=== PATIENT | female | born 1995 | race Caucasian/White ===

== ENCOUNTER 2016-04-08 15:58 | Emergency (ER) | payer OTHER ==
[~2016-04-08] VITALS: Ht 157.5 cm; Wt 69.0 kg
--- NOTE | 2016-04-08 15:57 | EMERGENCY ROOM VISIT NOTE ---
History Report prepared by Yaritza: Sandy Cintron Under the Supervision of: Dr. Arvind Wyatt M.D. First contact with patient: 15:54 Chief Complaint: ALCOHOL OVERDOSE Stated Complaint: ETOH History of Present Illness The patient is a 20 year old female who presents to the Emergency Room with complaints of an episode of alcohol intoxication beginning just CRIMINAL JUDGE. The patient states that she was drinking today and was brought in here because she was vomiting. EMS reports that the patient drank 5 beers and had 1 drink before vomiting 2 times in the lobby and the hallway of a building. The patient notes that she has a history of ulcerative colitis. She denies any drug use, fall, and trauma. Source of History: patient Onset: just CRIMINAL JUDGE Position: other (global) Quality: other (intoxicated) Timing: other (episode) Note: She denies any drug use, fall, and trauma. Review of Systems See HPI for pertinent positives & negatives. A total of 10 systems reviewed and were otherwise negative. Past Medical & Surgical Medical Problems: (1) Ulcerative colitis Old medical records were reviewed. Nurse's notes were reviewed and I agree with. Family History No pertinent family history stated. Social History Alcohol Use: occasionally Marital Status: single Housing Status: lives with roommate Occupation Status: student Current/Historical Medications Scheduled Azathioprine (Imuran), 50 MG PO DAILY Sulfasalazine (Azulfidine), Unknown Dose PO BID Allergies Coded Allergies: No Known Allergies (Unverified , 04/08/16) Physical Exam Vital Signs Date Time Temp Pulse Resp B/P Pulse Ox O2 Delivery O2 Flow Rate FiO2 04/08/16 19:49 120 20 158/92 100 04/08/16 19:06 105 16 133/87 100 04/08/16 17:14 120/46 04/08/16 17:13 92 15 100 04/08/16 17:08 79 15 100 04/08/16 17:03 74 15 100 04/08/16 16:58 74 17 100 04/08/16 16:53 73 16 100 04/08/16 16:48 67 15 100 04/08/16 16:43 72 16 100 04/08/16 16:38 72 16 100 04/08/16 16:33 65 16 100 04/08/16 16:31 82 04/08/16 16:28 83 16 100 04/08/16 16:23 73 15 100 04/08/16 16:18 68 17 100 04/08/16 16:13 91 16 92 04/08/16 16:08 91 17 100 04/08/16 16:03 122/77 04/08/16 16:00 36.4 96 18 122/77 98 Room Air Physical Exam General: Moderately intoxicated young female, slurred speech, answers questions appropriately. HEENT: Normal cephalic atraumatic. Pupils are equal round and reactive to light. Extraocular movements are intact. Oropharynx is pink with moist mucous membranes. No swelling of the mouth lips or tongue. Neck: Supple with a midline trachea. No meningeal signs or stiffness, no JVD or bruits. No Stridor. Chest: Clear to auscultation bilaterally. No wheezes or rhonchi. No increased work of breathing. Heart: regular rate and rhythm. Abdomen: Soft nontender, nondistended without rebound guarding or rigidity. Extremities: No cyanosis clubbing or edema. No calf tenderness or assymetry Spine/Back. Non tender to palpation. No CVA tenderness Skin: Good turgor without rashes. Neurologic exam: Cranial nerves two through 12 are intact. Motor and sensation are intact and symmetrical throughout. Medical Decision & Procedures Laboratory Results Test 04/08/16 16:07 Ethyl Alcohol mg/dL 200.0 mg/dl (0-3) Laboratory studies as stated above per my review. ED Course 1555: Past medical records reviewed. The patient was evaluated in room B3B, and a complete history and physical examination were performed. 1807: I reevaluated the patient. She is waking up. 1928: I reevaluated the patient. She is trying to find a ride home. 1948: The patient's sober friend just arrived. 1954: Upon reevaluation, the patient is hemodynamically stable. I discussed the results and treatment plan with the patient. She verbalized agreement of the treatment plan. The patient was discharged home. Medical Decision Differential diagnoses include alcohol intoxication, trauma, and overdose. This patient comes in as described above. She was placed in room B3B. She is brought in after being found intoxicated. She denies any trauma. She is able talk to me. She does appear to be mildly moderately intoxicated. She denies any coingestions or trauma or physical complaints. She does have a history Crohn's disease. Blood alcohol was obtained and she was placed with aspiration precautions on a monitor. She was reassessed frequently. He sobered up and was able ambulate without difficulty. She had a sober friend arrive and she will be sent home with her. Do not drinking more alcohol and return if any new problems or concerns. Impression Primary Impression: Alcohol intoxication Scribe Attestation The scribe's documentation has been prepared under my direction and personally reviewed by me in its entirety. I confirm that the note above accurately reflects all work, treatment, procedures, and medical decision making performed by me. Departure Information Dispostion Home / Self-Care Forms HOME CARE DOCUMENTATION FORM, IMPORTANT VISIT INFORMATION Patient Instructions Alcohol Intoxication - [facility], [facility], [place]: [employer] Students and Alcohol Related Visits , My [facility] Additional Instructions Rest. Drink plenty of fluids. Do not drink any more alcohol. Drink plenty of nonalcoholic liquids Return if: Any new problems or concerns.
[2016-04-08 16:00] VITALS: TEMP 36.4; Ht 157.5 cm; Wt 69.0 kg
[2016-04-08] MEDS ORDERED: AZAT50TA17 PO (16:13)
[2016-04-08] MEDS ORDERED: SULF500T36 PO (16:13)
[2016-04-08 19:49] VITALS: BP 158/92; PULSE 120; O2SAT 100
== END 2016-04-08 19:49 | disposition home or self-care (01) ==
LOC: C.EDB 16:00
DX: F10.129 Alcohol abuse with intoxication, unspecified (principal)